=== PATIENT | female | born 1980 | race Caucasian/White ===

== ENCOUNTER 2024-03-09 07:41 | Emergency (ER) | payer BC ==
[2024-03-09] MEDS ORDERED: NA CHLORIDE 0.9% 1,000 ML ONE (07:58)
[2024-03-09] MEDS ORDERED: ONDANSETRON 4 MG/2 ML VIAL ONE (08:10)
[2024-03-09] MEDS ORDERED: MORPHINE 4 MG/ML SYR ONE (08:10)
[2024-03-09 08:22] LABS: Specific Gravity 1.014 (1.005-1.030)
[2024-03-09 08:23] LABS: Specific Gravity 1.014 (1.005-1.030); Sqamous Epithelial <5 /HPF (None Seen); Urine Bacteria <20 /HPF (<20); Urine Bilirubin NEGATIVE (Negative); Urine Blood Trace (Negative); Urine Clarity Turbid (Clear); Urine Color Light-Yellow (Yellow); Urine Culture Reflex Order NOT NEEDED; Urine Glucose NEGATIVE (Negative); Urine Ketones NEGATIVE (Negative); Urine Microscopic Reflex YN ORDER UMIC; Urine Mucus Slight /HPF (None Seen); Urine Nitrite NEGATIVE (Negative); Urine Protein NEGATIVE (Negative); Urine RBC <5 /HPF (None Seen); Urine Urobilinogen Normal (Normal); Urine WBC <5 /HPF (<5); Urine WBC Clump Rare /HPF (None Seen); Urine pH 5.5 (5.0-7.0)
[2024-03-09 08:34] LABS: Absolute Eosinophils 0.1 K/uL (0-0.5); Absolute Lymphocytes (CBC) 1.4 K/uL (0.7-4.9); Absolute Monocytes 0.7 K/uL (0.1-1.3); Absolute Neutrophil 5.5 K/uL (1.8-8.0); Basophils % 0.5 % (0-1.3); Hematocrit 42.7 % (36.0-45.0); Hemoglobin 14.1 g/dL (12.0-15.0); Lymphocytes % 17.8 % (15.3-44.8); MCH 30.4 pg (27.0-35.0); MCHC 33.1 g/dL (32.0-36.0); MCV 91.9 fL (80-100); MPV 7.7 fL (7.6-11.3); Monocytes % 9.1 % (3.3-12.3); Neutrophils % 71.6 % (41.7-73.7); Platelets 392 thou/uL (152-406); RBC Red Blood Cell Count 4.64 M/uL (3.86-4.86); Red Cell Distribution Width 13.2 % (12.1-15.2)
[2024-03-09 08:41] LABS: Albumin 3.4 g/dL (3.4-5.0); Albumin/Globulin Ratio 0.9 (1.1-1.8); Anion Gap 7.7 mEq/L (5.0-15.0); Bilirubin Total 0.7 mg/dL (0.2-1.0); Potassium 3.7 mEq/L (3.5-5.1); Protein, Total 7.4 g/dL (6.4-8.2)
[2024-03-09] MEDS ORDERED: HYDROMORPHONE HCL 1 MG/ML INJ ONE (08:43)
--- NOTE | 2024-03-09 08:55 | RAD REPORT ---
EXAMINATION: CT ABDOMEN AND PELVIS WITH CONTRAST CLINICAL INDICATION: Female, 43 years old.ABD PAIN TECHNIQUE: CT abdomen and pelvis was performed, after the administration of IV contrast, [facility]. Axial, sagittal and coronal reconstructions were obtained. One or more of the following dose reduction techniques were used: Automated exposure control, adjustment of the mA and/o r kV according to patient size, and/or iterative reconstruction. Unless otherwise specified, incidental findings do not require dedicated imaging follow-up. [id number]. COMPARISON: No prior exam. FINDINGS: LOWER CHEST: The visualized lung bases are clear. LIVER: Lesion inferior aspect of right hepatic lobe consistent with a hemangioma. Minimal intrahepati c biliary ductal dilatation. GALLBLADDER/BILE DUCT: Corticectomy. Prominent extra hepatic common bile duct likely related to the p ostcholecystectomy state.? PANCREAS: No significant abnormality. SPLEEN: Normal size. No focal lesion. ADRENALS: Normal; no mass. KIDNEYS AND URETERS: Normal size and contour. No hydronephrosis. GASTROINTESTINAL TRACT: Prominent fluid-filled loops of small bowel. PERITONEUM: Moderate volume of free fluid in the abdomen and pelvis. Abnormal mixed attenuation fluid present in the lower abdomen and pelvis. There are a few a hyperintense foci that are nonspecific and could reflect either a mass or areas of bleeding. In the absence of a delay, evaluation for activ e bleeding is limited. Peritoneal enhancement present suggesting peritonitis. LYMPH NODES: No lymphadenopathy. ABDOMINAL AORTA AND OTHER VESSELS: Normal caliber aorta and IVC. URINARY BLADDER: Normal contour. REPRODUCTIVE ORGANS: Hysterectomy by report.The ovaries were reportedly left. MUSCULOSKELETAL: No acute or suspicious osseous abnormality. ADDITIONAL FINDINGS: None. IMPRESSION: Complex fluid/mass in the lower abdomen/pelvis. In the absence of a delay CT sequence to evaluate for active bleeding, the differential includes either hemoperitoneum with clot and possible active bleeding versus a complex mass. If hemoperitoneum, the source is uncertain as there are several foci of high attenuation in both adnexa that could be sites. A ruptured and bleeding hemorrhagic cyst is a consideration. Recommend surgical consultation. Discussed with Dr. Verde by Dr. Reddy at 0845 on 03/09/24
--- NOTE | 2024-03-09 09:38 | ER ---
Nurse's Notes [facility] Name: Lesley Mclain Age: 43 yrs Sex: Female : 1980 Arrival Date: 03/09/2024 Time: 07:41 Bed 6 Private MD: Diagnosis: Hemoperitoneum, abdominal pain, peritonitis Presentation: 03/09 07:48 Chief complaint: Patient states: Abd pain and diarrhea x 3 days. Nausea that began ss today. Coronavirus screen: Client denies travel out of the [place] in the last 14 days. Ebola Screen: Patient denies exposure to infectious person. Patient denies travel to an Ebola-affected area in the 21 days before illness onset. Initial Sepsis Screen: Does the patient meet any 2 criteria? No. Patient's initial sepsis screen is negative. Does the patient have a suspected source of infection? No. Patient's initial sepsis screen is negative. Risk Assessment: Do you want to hurt yourself or someone else? Patient reports no desire to harm self or others. Onset of symptoms was March 07, 2024. 07:48 Method Of Arrival: Ambulatory ss 07:48 Acuity: AMANDA 3 ss 08:48 Acuity: AMANDA 2 ss Historical: - Allergies: 07:49 codeine sensitivity; ss - Home Meds: 08:01 None [Active]; ss - PMHx: 08:01 Hypertensive disorder; ss - PSHx: 07:49 hysterectomy; ss 08:00 Tonsillectomy; Cholecystectomy; ss - Immunization history:: Adult Immunizations up to date. - Infectious Disease History:: Denies. - Social history:: Smoking status: Patient denies any tobacco usage or history of. Screenin:46 [facility] ED Fall Risk Assessment (Adult) History of falling in the last 3 months, rs5 including since admission No falls in past 3 months (0 pts) Confusion or Disorientation No (0 pts) Intoxicated or Sedated No (0 pts) Impaired Gait No (0 pts) Mobility Assist Device Used No (0 pt) Altered Elimination No (0 pt) Score/Fall Risk Level 0 - 2 = Low Risk Oriented to surroundings, Maintained a safe environment. Abuse screen: Denies threats or abuse. Nutritional screening: No deficits noted. Tuberculosis screening: No symptoms or risk factors identified. Assessment: 07:49 Reassessment: Pt ambulated to restroom with steady gait. Is guarding lower abd, ss grimacing. 07:51 General: Appears uncomfortable, Behavior is calm, cooperative. Pain: Complains of pain rs5 in abdomen Pain currently is 8 out of 10 on a pain scale. Quality of pain is described as aching, Is continuous. Neuro: Level of Consciousness is awake, alert, obeys commands, Oriented to person, place, time, situation. Cardiovascular: Patient's skin is warm and dry. Respiratory: Airway is patent Respiratory effort is even, unlabored, Respiratory pattern is regular, symmetrical. GI: Abdomen is round non-distended, Abd is soft and non tender X 4 quads. Reports diarrhea, nausea. : No signs and/or symptoms were reported regarding the genitourinary system. EENT: No signs and/or symptoms were reported regarding the EENT system. Derm: Skin is intact, Skin is pink, warm \T\ dry. Musculoskeletal: Range of motion: intact in all extremities. 08:33 Reassessment: Patient and/or family updated on plan of care and expected duration. Pain rs5 level reassessed. Patient is alert, oriented x 3, equal unlabored respirations, skin warm/dry/pink. Patient states feeling better. 08:48 Reassessment: Dr. Verde discussing CT read with Dr. koch, radiologist. Free fluid is ss reportedly seen in abdomen. 08:53 Reassessment: Dr. Verde consulting Dr. Godwin, general surgery. ss 10:01 Reassessment: Patient and/or family updated on plan of care and expected duration. Pain rs5 level reassessed. Patient is alert, oriented x 3, equal unlabored respirations, skin warm/dry/pink. 11:09 Reassessment: Patient and/or family updated on plan of care and expected duration. Pain rs5 level reassessed. Patient is alert, oriented x 3, equal unlabored respirations, skin warm/dry/pink. 11:55 Reassessment: Patient and/or family updated on plan of care and expected duration. Pain rs5 level reassessed. Patient is alert, oriented x 3, equal unlabored respirations, skin warm/dry/pink. Vital Signs: 07:48 BP 127 / 92; Pulse 91; Resp 17; Temp 98.2(O); Pulse Ox 98% on R/A; rs5 08:47 BP 124 / 94; Pulse 87; Pulse Ox 97% on R/A; Pain 8/10; hb 09:06 Weight 68.04 kg; Height 5 ft. 3 in. ; ss 09:38 BP 142 / 75; Pulse 88; Resp 15; Pulse Ox 98% on R/A; Pain 3/10; hb 11:50 BP 133 / 77; Pulse 80; Resp 17; Pulse Ox 99% on R/A; rs5 09:06 Body Mass Index 26.57 (68.04 kg, 160.02 cm) ss 08:47 Pain Scale: Adult hb 09:38 Pain Scale: Adult hb ED Course: 07:45 Patient arrived in ED. ra3 07:46 Patient has correct armband on for positive identification. Placed in gown. Bed in low rs5 position. Call light in reach. Side rails up X2. 07:46 No provider procedures requiring assistance completed. rs5 07:47 Jj Verde MD is Attending Physician. sp3 07:49 Triage completed. ss 07:49 Arm band placed on right wrist. ss 07:53 Chapo Phillips, ELIAN is Primary Nurse. rs5 08:01 Inserted saline lock: 20 gauge in left antecubital area, using aseptic technique. Blood rs5 collected. Flushed with 10 mL NS. 08:22 CT Abd/Pelvis - IV Contrast Only In Process Unspecified. EDMS 09:05 initiated transfer to [facility]. bd 09:38 pt denied due to no capability at [facility] per Juan Alberto Kinsey. bd 09:39 initiated transfer to [facility]. bd 11:29 pt accepted in transfer to [facility] by Dr ontiveros admin approval given by Issa Montenegro. 12:10 Provided Education on: discharge instructions . rs5 12:30 Patient transferred, IV remains in place. hb Administered Medications: 08:16 Drug: NS 0.9% IV 1000 ml IV at 1 bolus Per protocol; 1000 mL bolus Route: IV; Rate: 1 rs5 bolus; Site: left antecubital; 09:22 Follow up: Response: No adverse reaction; IV Status: Completed infusion; IV Intake: rs5 1000ml 08:16 Drug: morphine IVP or IV 2 mg IVP once over 4 mins Route: IVP; Infused Over: 4 mins; rs5 Site: left antecubital; 08:30 Follow up: Response: No adverse reaction; Pain is decreased rs5 08:16 Drug: Ondansetron IVP 4 mg IVP once; over 2 minutes Route: IVP; Site: left antecubital; rs5 08:30 Follow up: Response: No adverse reaction rs5 08:46 Drug: HYDROmorphone IVP 1 mg IVP once Route: IVP; Site: left antecubital; hb 09:09 Follow up: Response: No adverse reaction; Pain is decreased rs5 Medication: 08:34 VIS not applicable for this client. rs5 Intake: 09:22 IV: 1000ml; Total: 1000ml. rs5 Outcome: 09:37 ER care complete, transfer ordered by . sp3 12:15 Transferred by ground EMS 12:15 Condition: stable 12:15 Instructed on the need for transfer, Demonstrated understanding of instructions, 12:41 Patient left the ED. Signatures: Dispatcher [employer] EDMS Belinda Sy Shelby, ELIAN RN Mary Anne Wolff RN RN Jj Verde MD MD sp3 Chapo Phillips RN RN rs5 Emelina Munguia ra3
--- NOTE | 2024-03-09 09:38 | EDPHYS ---
Physician Documentation [facility] Name: Lesley Mclain Age: 43 yrs Sex: Female : 1980 Arrival Date: 03/09/2024 Time: 07:41 Bed 6 Private MD: ED Physician Jj Verde HPI: 03/09 07:58 This 43 yrs old Female presents to ER via Ambulatory with complaints of stomach pain sp3 x3days. 07:58 43-year-old female with a significant past medical history and past surgical history of sp3 hysterectomy and cholecystectomy now presents with periumbilical pain radiating inferiorly for 3 days off and on. She denies any diarrhea, vomiting, blood in her stool, melena, dysuria, urinary frequency, visualized hematuria, fever, fall, trauma, known sick contacts, travel history, prolonged immobilization, or any other signs or symptoms on ROS at this time.. Historical: - Allergies: 07:49 codeine sensitivity; ss - Home Meds: 08:01 None [Active]; ss - PMHx: 08:01 Hypertensive disorder; ss - PSHx: 07:49 hysterectomy; ss 08:00 Tonsillectomy; Cholecystectomy; ss - Immunization history:: Adult Immunizations up to date. - Infectious Disease History:: Denies. - Social history:: Smoking status: Patient denies any tobacco usage or history of. ROS: 07:59 Constitutional: Negative for fever, chills, and weight loss, Eyes: Negative for injury, sp3 pain, redness, and discharge, ENT: Negative for injury, pain, and discharge, Neck: Negative for injury, pain, and swelling, Cardiovascular: Negative for chest pain, palpitations, and edema, Respiratory: Negative for shortness of breath, cough, wheezing, and pleuritic chest pain, Back: Negative for injury and pain, MS/Extremity: Negative for injury and deformity, Skin: Negative for injury, rash, and discoloration, Neuro: Negative for headache, weakness, numbness, tingling, and seizure, Psych: Negative for depression, anxiety, suicide ideation, homicidal ideation, and hallucinations, Allergy/Immunology: Negative for hives, rash, and allergies, Endocrine: Negative for neck swelling, polydipsia, polyuria, polyphagia, and marked weight changes, Hematologic/Lymphatic: Negative for swollen nodes, abnormal bleeding, and unusual bruising, 07:59 All other systems are negative, Exam: 07:59 Constitutional: This is a well developed, well nourished patient who is awake, alert, sp3 and in no acute distress. Head/Face: Normocephalic, atraumatic. Eyes: Pupils equal round and reactive to light, extra-ocular motions intact. Lids and lashes normal. Conjunctiva and sclera are non-icteric and not injected. Cornea within normal limits. Periorbital areas with no swelling, redness, or edema. ENT: Nares patent. No nasal discharge, no septal abnormalities noted. External auditory canals are clear. Oropharynx with no redness, swelling, or masses, exudates, or evidence of obstruction, uvula midline. Mucous membranes moist. Neck: Trachea midline, no thyromegaly or masses palpated, and no cervical lymphadenopathy. Supple, full range of motion without nuchal rigidity, or vertebral point tenderness. No Meningismus. Chest/axilla: Normal chest wall appearance and motion. Nontender with no deformity. No lesions are appreciated. Cardiovascular: Regular rate and rhythm with a normal S1 and S2. No gallops, murmurs, or rubs. Normal PMI, no JVD. No pulse deficits. Respiratory: Lungs have equal breath sounds bilaterally, clear to auscultation and percussion. No rales, rhonchi or wheezes noted. No increased work of breathing, no retractions or nasal flaring. Back: No spinal tenderness. No costovertebral tenderness. Full range of motion. Skin: Warm, dry with normal turgor. Normal color with no rashes, no lesions, and no evidence of cellulitis. MS/ Extremity: Pulses equal, no cyanosis. Neurovascular intact. Full, normal range of motion. Neuro: Awake and alert, GCS 15, oriented to person, place, time, and situation. Cranial nerves II-XII grossly intact. Motor strength 5/5 in all extremities. Sensory grossly intact. Cerebellar exam normal. Normal gait. Psych: Awake, alert, with orientation to person, place and time. Behavior, mood, and affect are within normal limits. 08:04 Abdomen/GI: Patient with significant pain to the lower quadrants equally bilaterally sp3 without peritonitis, rebound or guarding., Vital Signs: 07:48 BP 127 / 92; Pulse 91; Resp 17; Temp 98.2(O); Pulse Ox 98% on R/A; rs5 08:47 BP 124 / 94; Pulse 87; Pulse Ox 97% on R/A; Pain 8/10; hb 09:06 Weight 68.04 kg; Height 5 ft. 3 in. ; ss 09:38 BP 142 / 75; Pulse 88; Resp 15; Pulse Ox 98% on R/A; Pain 3/10; hb 11:50 BP 133 / 77; Pulse 80; Resp 17; Pulse Ox 99% on R/A; rs5 09:06 Body Mass Index 26.57 (68.04 kg, 160.02 cm) ss 08:47 Pain Scale: Adult hb 09:38 Pain Scale: Adult hb MDM: 07:47 Patient medically screened. sp3 08:05 Data reviewed: vital signs, nurses notes, lab test result(s), radiologic studies. ED sp3 course: 43-year-old female with lower abdominal pain for 3 day. Differential diagnosis includes foodborne illness, appendicitis, [employer] pathology, UTI/pyelonephritis spectrum, kidney stone/ureterolithiasis spectrum, other colitis, musculoskeletal, functional abdominal pain, among others. Workup will include CT scan of the abdomen pelvis with IV contrast, laboratory values and urine analysis. Treatment will include IV fluids, morphine and Zofran for symptomatic control. Disposition pending workup and patient course.. 08:43 ED course: Discussed with Dr. Reddy radiology who is currently reviewing imaging. We are sp3 concerned about heavy fluid in the pelvis free in nature being either blood or other source and etiology. Patient's vital signs remained stable and CBC is normal. Her pain is increased however and we will continue with Dilaudid IV and await radiology final reads. Consider ultrasound as well. Will also consider general surgery consultation versus transfer depending on final disposition and diagnosis pathway.. 09:36 ED course: [facility] could only accept patient to the [place]. Patient does not want [facility] to go there and we will attempt [facility] next.. 10:05 ED course: Patient accepted at [facility] and we will transfer there.. sp3 03/09 07:52 Order name: CBC with Diff; Complete Time: 08:39 sp3 03/09 07:52 Order name: CMP; Complete Time: 08:43 sp3 03/09 07:52 Order name: Lipase; Complete Time: 08:43 sp3 03/09 07:52 Order name: Test, Urine; Complete Time: 08:39 sp3 03/09 07:52 Order name: Urinalysis w/ reflexes; Complete Time: 08:39 sp3 03/09 08:44 Order name: Type And Screen; Complete Time: 10:17 sp3 03/09 10:15 Order name: ABO/RH no charge; Complete Time: 10:17 EDMS 03/09 07:52 Order name: CT Abd/Pelvis - IV Contrast Only; Complete Time: 08:57 sp3 03/09 07:52 Order name: IV Saline Lock; Complete Time: 08:08 sp3 03/09 07:52 Order name: Labs collected and sent; Complete Time: 08:08 sp3 03/09 07:58 Order name: NPO; Complete Time: 08:08 sp3 Administered Medications: 08:16 Drug: NS 0.9% IV 1000 ml IV at 1 bolus Per protocol; 1000 mL bolus Route: IV; Rate: 1 rs5 bolus; Site: left antecubital; 09:22 Follow up: Response: No adverse reaction; IV Status: Completed infusion; IV Intake: rs5 1000ml 08:16 Drug: morphine IVP or IV 2 mg IVP once over 4 mins Route: IVP; Infused Over: 4 mins; rs5 Site: left antecubital; 08:30 Follow up: Response: No adverse reaction; Pain is decreased rs5 08:16 Drug: Ondansetron IVP 4 mg IVP once; over 2 minutes Route: IVP; Site: left antecubital; rs5 08:30 Follow up: Response: No adverse reaction rs5 08:46 Drug: HYDROmorphone IVP 1 mg IVP once Route: IVP; Site: left antecubital; hb 09:09 Follow up: Response: No adverse reaction; Pain is decreased rs5 Disposition Summary: 03/09/24 09:37 Transfer Ordered Notes: [facility] Reason: Higher level of care sp3 Condition: Stable sp3 Problem: new sp3 Symptoms: have worsened sp3 Accepting Physician: [facility](03/09/24 12:41) hb Diagnosis - Hemoperitoneum, abdominal pain, peritonitis sp3 Forms: - Medication Reconciliation Form sp3 - SBAR form sp3 Critical care time excluding procedures: 09:36 Critical care time: Bedside Care: 10 minutes, Consultation: 10 minutes, Family sp3 Intervention: 10 minutes. Total time: 30 minutes Signatures: Dispatcher [employer] EDTrisha Moncada, RN RN Mary Anne Wolff RN RN Jj Verde MD MD sp3 Chapo Phillips RN RN rs5 Corrections: (The following items were deleted from the chart) 07:52 07:52 CBC+H.LAB.BRZ ordered. EDMS EDMS 07:52 07:52 COMPREHENSIVE METABOLIC PANEL+C.LAB.BRZ ordered. EDMS EDMS 07:52 07:52 LIPASE+C.LAB.BRZ ordered. EDMS EDMS 07:52 07:52 Test, Urine+UC.LAB.BRZ ordered. EDMS EDMS 07:52 07:52 Urinalysis+U.LAB.BRZ ordered. EDMS EDMS 08:05 07:59 Constitutional: This is a well developed, well nourished patient who is awake, sp3 alert, and in no acute distress. Head/Face: Normocephalic, atraumatic. sp3 12:41 09:37 TBD gynecology and surgery service sp3
[2024-03-09 13:19] VITALS: TEMP 98.2
[2024-03-09 13:30] VITALS: BP 142/75; O2SAT 98
== END 2024-03-09 12:41 | disposition short-term general hospital (02) ==
LOC: ER 07:41
DX: K66.1 Hemoperitoneum (principal); K65.9 Peritonitis, unspecified; I10 Essential (primary) hypertension
CPT/HCPCS: 96361; 85025; 81001; 36415; 86900; 86850; 81025; 86901; 83690; 80053; 74177; 96375; 96374; 99285; Q9967; J1170; J2405; J7030